=== PATIENT | female | born 1990 | race African-American/Black ===

== ENCOUNTER 2023-12-10 15:08 | Outpatient (CLI) | payer BC, SELFPAY ==
--- NOTE | ~2023-12-10 | CT_ITS ---
EXAMINATION: CT abdomen pelvis w con DATE: 12/10/2023 15:35 INDICATION: Right lower quadrant abdominal pain for years. TECHNIQUE: Computed tomography (CT) of the abdomen and pelvis was performed with 100 mL Omnipaque 350 intravenous contrast. Automated exposure control and iterative reconstruction technique were employe d. The dose-length product was 357.52 mGy-cm. COMPARISON: None. FINDINGS: The visualized portions of the lung bases demonstrate minimal atelectasis. No pleural effus ion. The heart size is normal. No pericardial effusion. The liver, gallbladder, spleen, pancreas, and adrenal glands are normal. There are cysts in the kidneys measuring up to 4 mm. There are no dilated loops of bowel. The appendix is not visualized. There is an intrauterine device in abnormally low po sition in the lower uterine segment and cervix. One prong penetrates the myometrium. There is physiol ogic fluid in the pelvis. There are no pathologically enlarged lymph nodes. The bones are unremarkabl e. IMPRESSION: 1. Appendix not visualized. 2. Intrauterine device in abnormal position. Reviewed, dictated and finalized at location A.
== END 2023-12-10 15:09 | disposition home or self-care (01) ==
PROVIDERS: Visit Provider Family Medicine
DX: R10.31 Right lower quadrant pain (principal); Z97.5 Presence of (intrauterine) contraceptive device
CPT/HCPCS: 74177; Q9967